=== PATIENT | female | born 1985 | race Caucasian/White ===

== ENCOUNTER 2021-11-04 10:55 | Emergency (ER) | payer MEDICAID ==
[~2021-11-04] VITALS: Ht 154.9 cm; Wt 67.0 kg
[~2021-11-04 10:55] MED LIST: PREN-88 PO
[2021-11-04] MEDS ORDERED: PROCHLORPERAZINE 10MG/2ML VIAL IV ONE (13:15)
[2021-11-04] MEDS ORDERED: SODIUM CHLORIDE 0.9% 1,000 ML IV ONE (13:15)
[2021-11-04 15:40] VITALS: BP 159/100
== END 2021-11-04 16:03 | disposition home or self-care (01) ==
LOC: ER 11:05
DX: G43.909 Migraine, unspecified, not intractable, without status migrainosus (principal); R03.0 Elevated blood-pressure reading, without diagnosis of hypertension
CPT/HCPCS: 96361; 96374; 99283; J0780; J7030